=== PATIENT | female | born 1990 | race American Indian/Alaskan Native ===

== ENCOUNTER 2022-04-28 10:07 | Emergency (ER) | payer MEDICAID ==
[2022-04-28] MEDS ORDERED: levETIRAcetam 1000 MG/NS 0.75% 1,000 MG/100 ML BAG IV ONE (11:19)
--- NOTE | 2022-04-28 11:20 | Emergency Department Report ---
ED General Adult HPI - General Chief complaint: Seizure Stated complaint: MALAISE/POST SEIZURE Time Seen by Provider: 04/28/22 11:11 Source: EMS Mode of arrival: Stretcher Limitations: No Limitations - History of Present Illness Initial comments: The patient presents to the emergency department with a chief complaint of seizure activity. Patient states this morning she was in bed when she had a seizure that was witnessed by family member. Patient states she started having seizures within the last 5 years and is on Keppra daily. Patient states that she is compliant with her Keppra medication but has not had a change to take it this morning. Patient states her neurologist is Dr. Hiram Feliz and her Keppra was increased to 1750 mg daily with the patient taking 1000 mg at night and 750 mg in the morning. Patient denies chest pain, shortness of breath, or abdominal pain. -: Sudden Radiation: non-radiation Severity scale (0 -10): 0 Consistency: now resolved Improves with: none Worsens with: none Associated Symptoms: denies other symptoms Treatments Prior to Arrival: none - Related Data Previous Rx's Medication Instructions Recorded Last Taken Type levETIRAcetam [Keppra TAB] 500 mg PO BID #120 tablet 04/28/22 Unknown Rx Allergies Allergy/AdvReac Type Severity Reaction Status Date / Time No Known Allergies Allergy Unverified 04/28/22 10:12 ED Review of Systems ROS: Stated complaint: MALAISE/POST SEIZURE Other details as noted in HPI Comment: All other systems reviewed and negative Constitutional: denies: chills, fever Eyes: denies: eye pain, eye discharge, vision change ENT: denies: ear pain, throat pain Respiratory: denies: cough, shortness of breath, wheezing Cardiovascular: denies: chest pain, palpitations Endocrine: no symptoms reported Gastrointestinal: denies: abdominal pain, nausea, diarrhea Genitourinary: denies: urgency, dysuria, discharge Musculoskeletal: denies: back pain, joint swelling, arthralgia Skin: denies: rash, lesions Neurological: denies: headache, weakness, paresthesias Psychiatric: denies: anxiety, depression Hematological/Lymphatic: denies: easy bleeding, easy bruising ED Past Medical Hx - Past Medical History Previous Medical History?: Yes Hx Seizures: Yes - Surgical History Past Surgical History?: No - Social History Smoking Status: Never Smoker Substance Use Type: None - Medications Home Medications: Home Medications Medication Instructions Recorded Confirmed Last Taken Type levETIRAcetam [Keppra TAB] 500 mg PO BID #120 tablet 04/28/22 Unknown Rx ED Physical Exam - General Limitations: No Limitations General appearance: alert, in no apparent distress - Head Head exam: Present: atraumatic, normocephalic - Eye Eye exam: Present: normal appearance, PERRL, EOMI - ENT ENT exam: Present: mucous membranes moist - Neck Neck exam: Present: normal inspection - Respiratory Respiratory exam: Present: normal lung sounds bilaterally. Absent: respiratory distress - Cardiovascular Cardiovascular Exam: Present: regular rate, normal rhythm. Absent: systolic murmur, diastolic murmur, rubs, gallop - GI/Abdominal GI/Abdominal exam: Present: soft, normal bowel sounds. Absent: distended, tenderness - Extremities Exam Extremities exam: Present: normal inspection - Back Exam Back exam: Present: normal inspection - Neurological Exam Neurological exam: Present: alert, oriented X3, CN II-XII intact. Absent: motor sensory deficit - Psychiatric Psychiatric exam: Present: normal affect, normal mood - Skin Skin exam: Present: warm, dry, intact, normal color. Absent: rash ED Course Vital Signs 04/28/22 04/28/22 04/28/22 10:12 10:49 10:51 Temperature 98.1 F Pulse Rate 81 75 Respiratory 18 16 14 Rate Blood Pressure 126/80 O2 Sat by Pulse 98 100 100 Oximetry ED Medical Decision Making - Medical Decision Making Patient given IV heparin Patient's family stated the patient did not hit her head and that the seizure occurred while she was in bed. Critical care attestation.: If time is entered above; I have spent that time in minutes in the direct care of this critically ill patient, excluding procedure time. ED Disposition Clinical Impression: Seizure Disposition: 01 HOME / SELF CARE / HOMELESS Is pt being admited?: No Does the pt Need Aspirin: No Condition: Stable Instructions: Seizure, Adult Additional Instructions: Return if worse Please follow-up with your neurologist as discussed Referrals: ANN GUO MD [Staff Physician] - 3-5 Days Time of Disposition: 12:38
[2022-04-28 14:00] VITALS: BP 116/73
== END 2022-04-28 13:59 | disposition home or self-care (01) ==
LOC: ED 10:07
DX: R56.9 Unspecified convulsions (principal); Z79.899 Other long term (current) drug therapy
CPT/HCPCS: 96374; 99283; J1953